=== PATIENT | male | born 1990 | race Caucasian/White ===

== ENCOUNTER 2017-03-02 20:51 | Emergency (ER) | payer OTHER ==
[~2017-03-02] VITALS: Ht 182.9 cm; Wt 95.5 kg
[~2017-03-02 20:51] MED LIST: FLEXERIL 1010 MG/TAB PO; NO HOME MEDICATIONS; NORCO 325 MG-51 TAB PO; NORCO 325 MG-7.1 TAB PO; PERCOCET 325 MG1 TA2 PO; PHENERGAN 25 TA25 MG PO; PHENERGAN25 MG RC; PROAMATINE 5MG T5 MG PO
[2017-03-02 20:53] VITALS: BP 164/86; TEMP 99.2
[2017-03-02] MEDS ORDERED: ACEON2 MG PO (20:56)
[2017-03-02 21:43] VITALS: PULSE 117
== END 2017-03-02 21:42 | disposition home or self-care (01) ==
LOC: COL.ER 20:51
DX: S05.01XA Injury of conjunctiva and corneal abrasion without foreign body, right eye, initial encounter (principal); H18.821 Corneal disorder due to contact lens, right eye

== ENCOUNTER 2017-07-17 04:46 | Emergency (ER) | payer OTHER ==
[~2017-07-17] VITALS: Ht 182.9 cm; Wt 114.6 kg
[~2017-07-17 04:46] MED LIST changes: +ACEON2 MG PO
[2017-07-17 04:48] VITALS: TEMP 98.7
[2017-07-17 06:00] VITALS: BP 129/70; PULSE 82
== END 2017-07-17 06:05 | disposition home or self-care (01) ==
LOC: COL.ER 04:46
DX: G43.909 Migraine, unspecified, not intractable, without status migrainosus (principal); I10 Essential (primary) hypertension
CPT/HCPCS: J0780; J1200; J1885

== ENCOUNTER → 2017-08-14 | Outpatient (CLI) | payer OTHER | LOC: COL.RAD 11:04 | DX: M51.26 Other intervertebral disc displacement, lumbar region (principal) ==

== ENCOUNTER 2018-01-25 11:49 | Emergency (ER) | payer OTHER ==
[~2018-01-25] VITALS: Ht 182.9 cm; Wt 113.6 kg
[2018-01-25 12:03] VITALS: TEMP 98.6
[2018-01-25 12:42] LABS: BASO % 0.2 % (0.0-2.0); EOS # 0.1 (0.0-0.7); GRAN # 2.7 (1.4-6.5); GRAN % 51.2 % (42.2-75.2); HEMATOCRIT 46.1 % (42.0-52.0); HEMOGLOBIN 15.7 g/dl (13.5-18.0); LYMPH % 37.1 % (20.0-51.0); MEAN CELL VOLUME 90 fl (80.0-100.0); MEAN CORPUSCULAR HEMOGLOBIN 31 pg (27.0-31.0); MEAN CORPUSCULAR HGB CONC 34 g/dl (33.0-37.0); MEAN PLATELET VOLUME 9.5 fl (7.4-10.4); MONO # 0.5 (0.1-0.6); MONO % 9.9 % (1.7-9.3); PLATELET COUNT 188 K/mm3 (130-400); RED BLOOD COUNT 5.13 M/mm3 (4.20-5.60)
[2018-01-25] MEDS ORDERED: MAXALT10 MG (12:44)
[2018-01-25] MEDS ORDERED: PRILOSEC 20MG20 MG PO (12:44)
[2018-01-25] MEDS ORDERED: PAMELOR50 MG PO (12:44)
[2018-01-25 12:51] LABS: ALANINE AMINOTRANSFERASE 61 U/L (21-72); ALBUMIN 4.2 gm/dL (3.5-5.0); ALKALINE PHOSPHATASE 70 U/L (50-136); ANION GAP 7 mmol/L (7-16); AST,SGOT 26 U/L (15-37); BILIRUBIN,TOTAL 0.8 mg/dL (0.0-1.0); BLOOD UREA NITROGEN 15 mg/dL (9-20); C-REACTIVE PROTEIN 0.6 mg/dL (0.0-0.9); CALCIUM 9.1 mg/dL (8.4-10.2); CARBON DIOXIDE 26 mmol/L (22-30); CHLORIDE 109 mmol/L (98-107); CREATININE, serum 0.97 mg/dL (0.66-1.25); GLUCOSE 99 mg/dL (74-106); POTASSIUM 4.4 mmol/L (3.4-5.0); SODIUM 141 mmol/L (137-145); TOTAL PROTEIN 7.6 gm/dL (6.4-8.2)
[2018-01-25] MEDS ORDERED: ZOFRAN8 MG PO (12:51)
[2018-01-25] MEDS ORDERED: LOPRESSOR 550 MG/TAB PO (12:51)
[2018-01-25 13:04] LABS: TROPONIN-I < 0.012 ng/mL (0.000-0.034)
[2018-01-25] MEDS ORDERED: ANTIVERT 12.512.5 MG PO (14:28)
[2018-01-25 15:45] VITALS: BP 149/98; PULSE 88
== END 2018-01-25 15:48 | disposition home or self-care (01) ==
LOC: COL.ER 11:49
PROVIDERS: Physician Assistant
DX: R42 Dizziness and giddiness (principal); I10 Essential (primary) hypertension; K21.9 Gastro-esophageal reflux disease without esophagitis; G43.909 Migraine, unspecified, not intractable, without status migrainosus; F17.210 Nicotine dependence, cigarettes, uncomplicated
CPT/HCPCS: J2060; J7030

== ENCOUNTER → 2018-06-12 | Outpatient (CLI) | payer OTHER ==
[~2018-06-12] MED LIST changes: +ANTIVERT 12.512.5 MG PO; +LOPRESSOR 550 MG/TAB PO; +MAXALT10 MG; +PAMELOR50 MG PO; +PRILOSEC 20MG20 MG PO; +ZOFRAN8 MG PO
== END ==
LOC: ZCOL.LAB 21:52
DX: H60.502 Unspecified acute noninfective otitis externa, left ear (principal)

== ENCOUNTER → 2018-06-12 | Outpatient (CLI) | payer OTHER | LOC: ZCOL.LAB 17:56 | DX: H60.502 Unspecified acute noninfective otitis externa, left ear (principal) ==